=== PATIENT | female | born 1975 | race African-American/Black ===

== ENCOUNTER 2019-01-18 05:14 | Day surgery (SDC) | payer OTHER ==
[2019-01-15 16:04] VITALS: BMI 37.4
[2019-01-18] MEDS ORDERED: CEFAZOLIN 2 GM in DEXTROSE 5%-WATER - 100 ML IVPB ONE (07:10)
[2019-01-18] MEDS ORDERED: CEFAZOLIN 2 GM/D5W 2 GM/50 ML ML IVPB ONE (07:15)
[2019-01-18] MEDS ORDERED: PHENAZOPYRIDINE HCL 100 MG TABLET (FP) ONE (07:15)
[2019-01-18] MEDS ORDERED: ceFAZolin SODIUM 1 GM VIAL ONE (07:16)
[2019-01-18] MEDS ORDERED: PHENAZOPYRIDINE HCL 100 MG TABLET (FP) PO ONE (07:30)
[2019-01-18] MEDS ORDERED: BUPIVACAINE HCL/PF 0.5% (5MG/ML) 10 ML VIAL ONE (07:55)
[2019-01-18] MEDS ORDERED: MIDAZOLAM HCL 2 MG/2 ML SINGLE DOSE VIAL ONE ×2 (07:59)
--- NOTE | 2019-01-18 08:07 | HP ---
History & Physical Update - History History: No Change - Physical Physical: No Change - Assessment Assessment: No Change - Plan Plan: No Change Currently as noted:: No change in HP
[2019-01-18] MEDS ORDERED: ceFAZolin SODIUM 1 GM VIAL IVPB ONE (08:10)
[2019-01-18] MEDS ORDERED: BUPIVACAINE HCL/PF (5 MG/ML) 30 ML VIAL IJ ONE ×2 (08:15)
[2019-01-18] MEDS ORDERED: PROPOFOL 20 ML ONE ×3 (08:19)
[2019-01-18] MEDS ORDERED: fentaNYL CITRATE 250 MCG/5 ML VIAL ONE (08:19)
[2019-01-18] MEDS ORDERED: ROCURONIUM BROMIDE 50 MG/5 ML VIAL ONE (08:19)
[2019-01-18] MEDS ORDERED: NEOSTIGMINE METHYLSULFATE 0.5 MG/ML - 10 ML MDV ONE (10:24)
[2019-01-18] MEDS ORDERED: DEXAMETHASONE SOD PHOSPHATE 4 MG/1 ML VIAL IVPUSH PRN (10:49)
[2019-01-18] MEDS ORDERED: PROMETHAZINE HCL 25 MG/1 ML VIAL IVPB PRN (10:49)
[2019-01-18] MEDS ORDERED: ONDANSETRON 4 MG/2 ML VIAL IVPUSH PRN ×2 (10:49)
[2019-01-18] MEDS ORDERED: HYDROmorphone *PCA* 10MG/50ML DISP.SYRIN PCA SCH (11:00)
[2019-01-18] MEDS ORDERED: LACTATED RINGERS SOLUTION 1,000 ML IV SCH (11:00)
[2019-01-18] MEDS ORDERED: ZOLPIDEM TARTRATE 5 MG TABLET PO PRN (11:02)
[2019-01-18] MEDS ORDERED: ACETAMINOPHEN 325 MG TABLET (FP) PO PRN (11:02)
[2019-01-18] MEDS ORDERED: BISACODYL 5 MG TABLET.DR (FP) PO PRN (11:05)
[2019-01-18] MEDS ORDERED: RANITIDINE HCL 150 MG TABLET (FP) PO PRN (11:12)
--- NOTE | 2019-01-18 11:14 | SURG ---
Surgery Test Baker Note Test Baker: Lenin Pearson PA-C (Suzy) Date of Service: 01/18/19 Diagnosis: Leiomyomatous uterus Procedure: Robotic assisted laparoscopic hysterectomy and bilateral salpingectomy I was present for the entirety of the operative procedure. For further detail, please refer to operative report. Visit type - Case Type Case Type: Scheduled - Emergency Emergency Visit: No - New patient This patient is new to me today: Yes Date on this admission: 01/18/19 - Critical Care Critical Care patient: No
--- NOTE | 2019-01-18 14:04 | OP ---
Operative Note - Note: Operative Date: 01/18/19 Pre-Operative Diagnosis: Leiomyomatous uterus Operation: Robotic assisted laparoscopic hysterectomy and bilateral salpingectomy Findings: as dictated Post-Operative Diagnosis: Same as Pre-op Surgeon: Mary Carias Director Reactor Projects: Lenin Pearson Anesthesiologist/NEUROLOGY DIRECTOR: Irma Banuelos MD Anesthesia: General, Local (20cc .25%marcaine) Specimens Removed: uterus, bilateral fallopian tubes Estimated Blood Loss (mls): 20 (ml) Drains, Volume Out (mls): 400 (ml yellow-orange urine ) Fluid Volume Replaced (mls): 2 (l lr) Operative Report Dictated: Yes
[2019-01-18] MEDS: CEFAZOLIN 2 GM/D5W 2 GM/50 ML ML IVPB SCH (18:11)
[2019-01-18 19:31] LABS: BASO % 0.3 % (0-2.0); EOS % 0.4 % (0-4.5); HEMATOCRIT 31.6 % (32.4-45.2); HEMOGLOBIN 9.9 GM/dL (10.7-15.3); MCH 23.4 pg (25.7-33.7); MCHC 31.2 g/dl (32.0-36.0); MEAN CELL VOLUME 75.1 fl (80-96); MEAN PLT VOLUME 9.8 fl (7.5-11.1); MONO % 6.5 % (3.8-10.2); NEUT % 73.8 % (42.8-82.8); PLATELET COUNT 170 K/MM3 (134-434); RBC 4.21 M/mm3 (3.60-5.2); RDW 18.5 % (11.6-15.6); WHITE BLOOD COUNT 7.5 K/mm3 (4.0-10.0)
[2019-01-18 20:01] LABS: CALCIUM 8.4 mg/dL (8.5-10.1); CREATININE 0.9 mg/dL (0.55-1.3); POTASSIUM 3.6 mmol/L (3.5-5.1)
[2019-01-19] MEDS: CEFAZOLIN 2 GM/D5W 2 GM/50 ML ML IVPB SCH (02:03)
[2019-01-19] MEDS: SIMETHICONE 80 MG TAB.CHEW (FP) PO PRN ×2 (03:16→08:50)
[2019-01-19 06:55] LABS: BASO % 0.4 % (0-2.0); EOS % 1.6 % (0-4.5); HEMATOCRIT 30.3 % (32.4-45.2); HEMOGLOBIN 9.6 GM/dL (10.7-15.3); LYMPH % 26.3 % (8-40); MCH 23.5 pg (25.7-33.7); MCHC 31.7 g/dl (32.0-36.0); MEAN CELL VOLUME 74.2 fl (80-96); MEAN PLT VOLUME 10.9 fl (7.5-11.1); MONO % 7.7 % (3.8-10.2); PLATELET COUNT 167 K/MM3 (134-434); RBC 4.08 M/mm3 (3.60-5.2); WHITE BLOOD COUNT 5.4 K/mm3 (4.0-10.0)
[2019-01-19] MEDS ORDERED: LEVOTHYROXINE NA 75 MCG TABLET (FP) PO SCH (07:00)
[2019-01-19 07:18] LABS: CALCIUM 8.1 mg/dL (8.5-10.1); CREATININE 0.8 mg/dL (0.55-1.3); POTASSIUM 3.6 mmol/L (3.5-5.1)
[2019-01-19] MEDS ORDERED: PCA PUMP KEY 1 EACH EACH ONE (07:44)
--- NOTE | 2019-01-19 08:01 | OP ---
DATE OF OPERATION: 01/18/2019 PREOPERATIVE DIAGNOSIS: Leiomyomatous uterus, menorrhagia and anemia. OPERATION: Laparoscopic robotic total hysterectomy and bilateral salpingectomy. SURGEON: Mary Carias MD ASSISTANTS: Lili SHIN, and ALEIDA Harris ANESTHESIA: General. ANESTHESIOLOGIST: Irma Banuelos MD FINDINGS: Uterus approximately 12 cm in size, leiomyomatous uterus. Tubes and ovaries noted to be normal. DESCRIPTION OF PROCEDURE: The patient was taken to the operating room, placed in the dorsal lithotomy position, prepped and draped in the usual sterile fashion. A time-out was performed in accordance with hospital regulation. A speculum was placed into the vagina. The anterior lip of the cervix was grasped with a single-tooth tenaculum. The cervix was then dilated to accommodate the uterine manipulator. Uterine manipulator was placed and Bonilla catheter was then inserted into bladder. Attention was then drawn to the umbilicus, where an 8-mm umbilical incision was made. Veress needle was inserted into the cavity. Approximately 3 to 4 L of CO2 was insufflated into the cavity. The Veress needle was then removed, and an 8-mm trocar was then inserted. Laparoscope and camera visualization revealed a leiomyomatous uterus. Tubes and ovaries were noted to be normal. Two trocars were placed on the left, 8 mm apart, parallel, the 1st incision. Second incision in the upper abdomen. A 5-mm incision was made, and an AirSeal cannula was then inserted. All cannulas were inserted under direct visualization. Two trocars were placed on the right side, 8 mm apart, under direct visualization. The da Mela robot was then side docked to the patient's arm, and trocars were then inserted. The vessel sealer was placed in 1, Endo Bette in 3, camera in 2 and tenaculum in 4. Once all placements were confirmed, attention was then drawn to the console, where control of the tenaculum was then done. The uterus was elevated and tilted to the right, and the utero-ovarian ligament was identified, clamped and cut. The round ligament was identified, clamped and cut. The uterine arteries were identified, clamped and cut. Vesicouterine section was then entered. The bladder was then bluntly dissected out of the operative field. The cardinal ligaments were identified, clamped and cut down to the level of the cervix. The Endo Bette were then used to cut the vagina away from the cervix anteriorly. The same procedure was repeated on the other side. The utero-ovarian ligament was identified. The uterine artery was identified, clamped and cut. The cardinal ligaments were identified, clamped and cut. Endo Bette were then used to cut the vagina circumferentially around off the cervix. The tubes were bilaterally grasped, coagulated and removed vaginally. The uterus was removed. A 2-0 V-Loc suture was then placed into the abdomen. The da Mela robot was used to close the vagina in a continuous fashion. Hemostasis was achieved. Both ureters were identified and found to have vigorous peristalsis. The needle was then removed. Irrigation was done. The trocars were then removed. The CO2 was removed from the abdomen. The incisions were then closed using 4-0 Biosyn suture in a subcuticular fashion. The wounds were washed and dressed. The patient tolerated the procedure well and was taken to the recovery room in stable condition. Carlos VANCE/[id number] MTDRadames
[2019-01-19 08:22] VITALS: TEMP 98.5
[2019-01-19] MEDS ORDERED: LEVOTHYROXINE NA 125 MCG TABLET (FP) PO SCH (08:30)
--- NOTE | 2019-01-19 08:30 | PN ---
Progress Note (short form) - Note Progress Note: Pt is POD1s/p robotic hysterectomy under GA with CALL CENTRE SUPERVISOR. Pt eating and doing well ; pt stated that [employer] C[employer]RE SUPERVISOR was just d/c'ed, and she will be starting PO pain meds. Her pain is under good control and she is in good spirits. No anesthetic issues /complications, please continue current management
--- NOTE | 2019-01-19 08:44 | PN ---
Progress Note (short form) - Note Progress Note: surgery POD#1 Robotic assisted laparoscopic hysterectomy and bilateral salpingectomy, patient seen and examined at bedside with no complaints. Her pain is controlled with SQUEEGEE FINISHER which she is using intermittently. She is tolerating her clears and her tovar is still in place. She denies any CP, SOB, N/V, fever or chills and she is passing flatus. Vital Signs Temp 98.5 F 01/19/19 08:00 Pulse 74 01/19/19 08:00 Resp 20 01/19/19 08:00 BP 103/52 L 01/19/19 08:00 Pulse Ox 98 01/18/19 21:00 Intake & Output 01/18/19 01/18/19 01/19/19 11:59 23:59 11:59 Intake Total 2400 1200 1225 Output Total 194 441 6893 Balance 1980 250 225 Intake: IV 2400 1000 1125 Lactated Ringers Solution 1000 1125 1,000 ml @ 125 mls/hr IV ASDIR ERASMO Rx#: [id number] IVPB 100 50 Oral 100 50 Output: Urine 801 701 7007 Tovar 350 1000 Estimated Blood Loss 20 Other: Voiding Method Indwelling Catheter CBC, BMP 01/19/19 06:29 01/19/19 06:29 PE: A&Ox3, NAD unlabored resp on RA ABD: Obese, soft, with diffuse TTP throughout RLQ and LLQ, incisions c/d/i with surrounding tissue intact, no evidence of tracking erythema or d/c B/L LE scds in place, compartments soft, supple and non-tender with +DP pulses. Problem List - Problems (1) History of robot-assisted laparoscopic hysterectomy Assessment/Plan: POD#1 patient doing well. 1) stop SQUEEGEE FINISHER will transition to oral pain meds 2) d/c tovar with TOV 3) regular diet 4) OOB as tolerated, up to chair for meals 5) encourage IS 6) d/c home later this afternoon if tolerating diet and passes TOV Code(s): Z90.710 - ACQUIRED ABSENCE OF BOTH CERVIX AND UTERUS
[2019-01-19] MEDS ORDERED: oxyCODONE HCL 5 MG TABLET PO PRN ×2 (09:00)
[2019-01-19] MEDS ORDERED: HYDROCHLOROTHIAZIDE 12.5 MG CAPSULE (FP) PO SCH (10:00)
[2019-01-19] MEDS ORDERED: FERROUS SO4 325 MG TABLET (FP) PO SCH (10:00)
[2019-01-19] MEDS ORDERED: VALSARTAN 160 MG TABLET (UD) PO SCH (10:00)
[2019-01-19] MEDS ORDERED: CHOLECALCIFEROL (VIT D3) 1,000 UNIT (25 MCG) TABLET PO SCH (10:00)
[2019-01-19] MEDS ORDERED: ENOXAPARIN NA (PORCINE) 30 MG/0.3 ML DISP.SYRIN SQ SCH (10:00)
[2019-01-19] MEDS ORDERED: DOCUSATE SODIUM 100 MG CAPSULE (FP) PO SCH (10:00)
[2019-01-19 14:35] VITALS: BP 116/68; PULSE 86
--- NOTE | 2019-01-21 10:59 | PATH ---
Surgical Pathology Report Patient Name: SHEILA RAZO [facility]. Rec. #: [id number] /Age/Gender: 1975 (Age: 43) / F Account: [id number] Location: AMBULATORY SURG Taken: 01/18/2019 Received: 01/18/2019 Reported: 01/21/2019 Physicians: Mary Carias M.D. Specimen(s) Received A: UTERUS AND CERVIX B: RIGHT FALLOPIAN TUBE C: LEFT FALLOPIAN TUBE Clinical History Menorrhagia, leiomyomatous uterus Final Diagnosis A. UTERUS AND CERVIX, LAPAROSCOPIC TOTAL HYSTERECTOMY: UTERUS SHOWING LEIOMYOMATA (WEIGHT: 255 G) AND PROLIFERATIVE ENDOMETRIUM. CERVIX WITH NO PATHOLOGIC FINDINGS. B. FALLOPIAN TUBE, RIGHT, TUBAL LIGATION: COMPLETE CROSS SECTION OF FALLOPIAN TUBE. C. FALLOPIAN TUBE, LEFT, TUBAL LIGATION: COMPLETE CROSS SECTION OF FALLOPIAN TUBE. Electronically Signed Katharine Levi M.D. Gross Description A. Received in formalin, labeled "uterus and cervix" is a uterus with attached cervix, weighing 255 g and measuring 11.7 centimeters from uterine dome to cervical os, 10.5 cm from cornu to cornu and 4.3 cm anteroposteriorly. The serosal aspect appears bosselated. Opening reveals a 6.2 x 2.5 cm endometrial cavity lined by red-velasquez endometrium with a thickness of up to 0.1 cm. The endocervical canal measures 2.7 x 0.8 cm and shows velasquez mucoid mucosa. The myometrium measures up to 2.8 cm in thickness and shows numerous light velasquez, rubbery nodules, ranging from 1.2-4.2 cm in greatest dimension. The nodules bulge into and distort the endometrial cavity. Clinical Programmer sections are submitted in 6 cassettes as follows: 1, 2-endomyometrium with nodules; 3- ectoendocervix; 4-6-nodules. B. Received in formalin, labeled "right fallopian tube" is a 4.5 cm long x 0.6 cm in diameter portion of fallopian tube with fimbriated end. Sectioning reveals a pinpoint lumen. Clinical Programmer sections are submitted in one cassette. C. Received in formalin, labeled "left fallopian tube" is a 4.8 cm long x 0.6 cm in diameter portion of fallopian tube with fimbriated end. Sectioning reveals a pinpoint lumen. Clinical Programmer sections are submitted in one cassette. AE/01/18/2019 ebram/01/18/2019
== END 2019-01-19 15:15 | disposition home or self-care (01) ==
LOC: JASUSAT 05:14 → EDSTATUS 08:00 → J3W 14:23 → JASUSAT 01-19 15:15
PROVIDERS: ATTEND Obstetrics & Gynecology
PROC: 8E0W4CZ Robotic Assisted Procedure of Trunk Region, Percutaneous Endoscopic Approach (ICD-10-PCS; 2019-01-18)
PROC: 0UT9FZZ Resection of Uterus, Via Natural or Artificial Opening With Percutaneous Endoscopic Assistance (ICD-10-PCS; principal; 2019-01-18 08:00)
PROC: 0UT7FZZ Resection of Bilateral Fallopian Tubes, Via Natural or Artificial Opening With Percutaneous Endoscopic Assistance (ICD-10-PCS; 2019-01-18 08:00)
DX: D25.9 Leiomyoma of uterus, unspecified (principal); N92.0 Excessive and frequent menstruation with regular cycle; D64.9 Anemia, unspecified
CPT/HCPCS: 58552; S2900; 36415; 80048; 84703; 85025; 86850; 86900; 86901; 88302-TC; 88307-TC; 94010; 94760